=== PATIENT | male | born 1990 | race Caucasian/White ===

== ENCOUNTER 2016-06-06 13:13 | Emergency (ER) | payer OTHER ==
[2016-06-06 13:37] LABS: BASOPHILS 0.6 % (0.0-2.0); EOSINOPHILS 1.3 % (0.0-6.0); EOSINOPHILS# 0.1 X 10^3uL (0.0-0.4); HEMATOCRIT 41.2 % (42.0-54.0); HEMOGLOBIN 14.6 g/dL (14.0-18.0); LYMPHOCYTES 28.8 % (20.0-40.0); LYMPHOCYTES# 1.5 X 10^3uL (0.8-3.8); MEAN CELL VOLUME 99.4 fL (80.0-100.0); MEAN CORPUS. HGB CONCENTRATION 35.3 g/dL (32.0-36.0); MEAN CORPUSCULAR HEMOGLOBIN 35.1 pg (29.0-35.0); MONOCYTES 7.7 % (2.0-10.0); MONOCYTES# 0.4 X 10^3uL (0.2-1.0); NEUTROPHILS 61.6 % (54.0-75.0); NEUTROPHILS# 3.3 X 10^3uL (2.6-6.7); PLATELET COUNT 123 X 10^3uL (130-440); RED BLOOD COUNT 4.15 X 10^6uL (4.20-6.10); RED CELL DISTRIBUTION WIDTH 12.4 % (11.5-14.5); WHITE BLOOD COUNT 5.4 X 10^3uL (3.9-10.7)
[2016-06-06 13:46] LABS: BLOOD UREA NITROGEN 12 mg/dL (9-20); CALCIUM 10.1 mg/dL (8.4-10.2); CHLORIDE 98 mmol/L (98-107); CREATININE 0.9 mg/dL (0.7-1.3); EST GLOMERULAR FILTRATION RATE > 60 mL/min; GLUCOSE 106 mg/dL (70-100); MAGNESIUM 1.4 mg/dL (1.6-2.3); POTASSIUM 3.1 mmol/L (3.5-5.1); SODIUM 139 mmol/L (137-145)
[2016-06-06 13:47] LABS: ETHYL ALCOHOL < 10 mg/dL (<10)
[2016-06-06] MEDS ORDERED: MAGNESIUM SULFATE 1 GM/2 ML VIAL ONE (13:47)
[2016-06-06] MEDS ORDERED: NORMAL SALINE 1,000 ML IV ONE (13:48)
[2016-06-06] MEDS ORDERED: THIAMINE HCL 200 MG/2 ML VIAL ONE (13:48)
[2016-06-06] MEDS ORDERED: CHLORDIAZEPOXIDE 25 MG CAPSULE PO ONE ×3 (13:48→14:55)
[2016-06-06] MEDS ORDERED: MULTIVITAMINS 10 ML VIAL IV ONE (13:49)
[2016-06-06] MEDS ORDERED: POTASSIUM EFF 25 MEQ TABLET ONE (14:11)
[2016-06-06] MEDS ORDERED: BACITRACIN 1 APP/PKT PKT TOPICAL ONE (14:11)
--- NOTE | 2016-06-06 16:03 | ER NURSING DOCUMENTATION ---
Nurse's Notes [facility] [place] Name:Jeffrey Lombardi Age:26 yrs Sex:Male :1990 Arrival Date:06/06/2016 Time:13:13 BedTrauma-B Private MD: Diagnosis:Seizure Presentation: 06/06 13:18 Acuity: ISAIAH 3 nf 13:20 Presenting complaint: Patient states: at [facility] x4 days, usually drinks 1 liter vodka nf daily, sober x4 days, history of ETOH withdrawal seizures; today on 1 mile hike with [employer] and had 2 witnessed seizures of "short" duration and were "not tonic clonic" per [facility] staff. Transition of care: patient was not received from another setting of care. Notified ED Physician of patient's arrival and CC Dr. Quinones notified. Care prior to arrival: IV initiated. gauge and site 18# right AC Saline lock initiated. Glucose check. 152 Oxygen administered. 13:20 Method Of Arrival: EMS: 410 nf Triage Assessment: 13:20 EENT: No deficits noted. Neuro: Level of Consciousness is awake, alert, Oriented to nf person, place, time, event, Moves all extremities. Speech is normal, Facial symmetry appears normal, Pupils are PERRLA, Denies weakness blurred vision dizziness, paresthesias headache Seizure activity reported prior to arrival. Neuro:. Cardiovascular: Capillary refill < 3 seconds Rhythm is regular. Respiratory: Respiratory effort is even, unlabored, Respiratory pattern is regular. GI: No deficits noted. Denies nausea, vomiting. 13:25 General: Appears in no apparent distress, well nourished, well groomed, Behavior is nf anxious, crying. Pain: Denies pain. Historical: - Allergies: No known drug Allergies; - Home Meds: 1. gabapentin oral 2. Carbamazepine Oral - PMHx: alcohol withdrawl seizures; previous alcohol detox; - PSHx: NA ; - Tetanus: Other NA today < 10 years. - Ebola Screening: : No symptoms or risks identified at this time. . - Immunization history: Flu Vaccine unknown. - Social history: Smoking status: Patient uses tobacco products, current every day smoker. Patient uses alcohol street drugs, marijuana. Screenin:29 Infectious Disease Risk None. Abuse screen: Denies threats or abuse. Nutritional nf screening: No deficits noted. Assessment: 13:29 See Triage Assessment done by same RN. nf Vital Signs: 13:20 BP 140 / 104; Pulse 124; Resp 18; Temp 98.0(O); Pulse Ox 96% on R/A; Weight 69.85 kg; nf Height 6 ft. 0 in. (182.88 cm); Pain 0/10; 13:50 BP 158 / 120; Pulse 127; Pulse Ox 94% on R/A; nf 14:20 BP 171 / 119; Pulse 111; Resp 16; Pulse Ox 96% on R/A; Pain 0/10; nf 15:49 BP 114 / 88; Pulse 95; Resp 16; Pulse Ox 93% on R/A; Pain 0/10; nf 13:20 Body Mass Index 20.89 (69.85 kg, 182.88 cm) nf [place] Coma Score: 13:20 Eye Response: spontaneous(4). Verbal Response: oriented(5). Motor Response: obeys nf commands(6). Total: 15. 13:50 Eye Response: spontaneous(4). Verbal Response: oriented(5). Motor Response: obeys nf commands(6). Total: 15. 14:20 Eye Response: spontaneous(4). Verbal Response: oriented(5). Motor Response: obeys nf commands(6). Total: 15. 15:49 Eye Response: spontaneous(4). Verbal Response: oriented(5). Motor Response: obeys nf commands(6). Total: 15. 15:49 Eye Response: spontaneous(4). Verbal Response: oriented(5). Motor Response: obeys nf commands(6). Total: 15. ED Course: 13:14 Patient arrived in ED. arc 13:15 Clau Hooks, RN is Primary Nurse. nf 13:20 Triage completed. nf 13:20 Maintain field IV. Dressing intact. Site clean & dry. nf 13:29 Valuables Remains with patient Patient has correct armband on for positive nf identification. Bed in low position. Call light in reach. Side rails up X2. Seizure precautions initiated. Seizure pads on bed close monitoring by staff. Pulse ox on. NIBP On - RN Monitoring Only. Door closed. Noise minimized. Lights dimmed. Moved to private room. Verbal reassurance given. Warm blanket given. Pillow given. Diet: Patient is NPO. 13:29 Arm band placed on Bed in low position Call Light in Reach HOB Elevated Side rails up nf x2. 13:33 Guy Quinones MD is Attending Physician. sc 14:05 Resting quietly. nf 14:05 Wound care located on left lateral hand dime size wound x3 weeks that patient requested nf ointment and bandaid to dress. 14:50 Diet: Patient given water. meal tray requested from dietary. nf 15:20 Diet: Patient given regular meal. Assisted to bathroom. nf Administered Medications: 13:56 Drug: Banana Bag - (NS 0.9% 1000 ml, folic acid 600 mcg, Thiamine 100 mg, Multivitamin nf 10 ml, Magnesium Sulfate 1 grams); Route: IV; Rate: calculated rate; Site: right antecubital; 14:50 Follow up: IV Status: Completed infusion; IV Intake: 1000ml nf 13:56 Drug: librium - chlordiazePOXIDE 25 mg; Route: PO; nf 14:32 Follow up: Response: No adverse reaction nf 14:03 Drug: K-Lyte Effervescent Tablet 50 mEq; Route: PO; nf 14:31 Follow up: Response: No adverse reaction nf 14:04 Drug: librium - chlordiazePOXIDE 25 mg; Route: PO; nf 14:32 Follow up: Response: No adverse reaction nf 14:04 Drug: Bacitracin Ointment (500 unit/g) 1 application; Route: Topical; Site: wound; nf 14:31 Follow up: Response: No adverse reaction nf 14:49 Drug: librium - chlordiazePOXIDE 25 mg; Route: PO; nf 15:22 Follow up: Response: No adverse reaction nf Intake: 14:50 IV: 1000ml; Total: 1000ml. nf 15:58 PO: 640ml (Water); Total: 1640ml. nf Output: 15:58 Urine: 1ml (Voided); Total: 1ml. nf Outcome: 14:21 Report given to nurse Jesika at [facility] - she states the patient will go back to [facility] for the night and be started on keppra for 1 week; Jesika was given a report on the patient's condition and lab results and medications administered 15:50 Report given to nurse Canchola at [facility], she is arranging for patient transport back to [facility]; ER sending copy of lab work and medications administered with patient 16:00 Discharge ordered by MD. sc 16:03 Patient left the ED. nf 16:04 Discharged to discharged to waiting room to await transport by [facility] staff nf 16:04 Condition: improved 16:04 Discharge Assessment: Patient awake, alert and oriented x 3. No cognitive and/or functional deficits noted. Patient verbalized understanding of disposition instructions. 16:04 Discharge instructions given to patient, [facility] staff 16:04 Instructed on discharge instructions, follow up and referral plans. medication usage. 16:04 IV D/Alvin Signatures: Clau Hooks RN RN nf Chew, Scott, MD MD sc Chew, Abbie, Reg Reg arc
--- NOTE | 2016-06-06 16:03 | ER PHYSICIAN DOCUMENTATION ---
Physician Documentation [facility] Name:Jeffrey Lombardi Age:26 yrs Sex:Male :1990 Arrival Date:06/06/2016 Time:13:13 BedTrauma-B Private MD: Guy Viramontes Disposition: 06/06/16 16:00 Discharged to [facility]. Impression: Seizure. - Condition is Good. - Discharge Instructions: Abuse, Alcohol - ALCOHOL WITHDRAWAL SEIZURE, Abuse, Alcohol - ALCOHOL WITHDRAWAL. - Medical Reconciliation form form. - Follow up: Private Physician; When: Today; Reason: Continuance of care. - Problem is new. - Symptoms have improved. HPI: 06/06 13:48 This 26 yrs old Male presents to ER via EMS with complaints of Probable sc Seizure. 13:48 The patient presents with a history of multiple seizures, a total of 2, that last 2 sc minute(s). Character of seizure(s): Loss of consciousness: the patient experienced loss of consciousness, Motor activity: generalized, Incontinence: none, Apnea: the patient did not experience apnea, Circulation: the patient did not experience evidence of pulse disturbance. Seizure onset: just prior to arrival. Context: the seizure(s) was witnessed, Rehab staff. Seizure Hx: Cause: alcohol abuse history, Last seizure: The patient's last seizure was approximately 8 month(s) ago. Associated injury: The patient did not suffer any apparent associated injury. EMS care: IV fluids. Current symptoms: Currently, the patient is not experiencing any symptoms. The patient has experienced similar episodes in the past, a few times. 13:50 wd szs in past always on day 4 of sobriety. sc Historical: - Allergies: No known drug Allergies; - Home Meds: 1. gabapentin oral 2. Carbamazepine Oral - PMHx: alcohol withdrawl seizures; previous alcohol detox; - PSHx: NA ; - Tetanus: Other NA today < 10 years. - Ebola Screening: : No symptoms or risks identified at this time. . - Immunization history: Flu Vaccine unknown. - Social history: Smoking status: Patient uses tobacco products, current every day smoker. Patient uses alcohol street drugs, marijuana. ROS: 13:50 Constitutional: Negative for fever, chills, and weight loss. sc Eyes: Negative for injury, pain, redness, and discharge. ENT: Negative for injury, pain, and discharge. Neck: Negative for injury, pain, and swelling. Cardiovascular: Negative for chest pain, palpitations, and edema. Respiratory: Negative for shortness of breath, cough, wheezing, and pleuritic chest pain. Abdomen/GI: Negative for abdominal pain, nausea, vomiting, diarrhea, and constipation. Back: Negative for injury and pain. MS/Extremity: Negative for injury and deformity. 13:50 Skin: Negative for injury, rash, and discoloration. sc 13:50 Neuro: Positive for tremor. 13:50 Psych: Positive for anxiety, alcohol dependence. Exam: Constitutional: This is a well developed, well nourished patient who is awake, alert, and in no acute distress. Head/Face: Normocephalic, atraumatic. Eyes: Pupils equal round and reactive to light, extra-ocular motions intact. Lids and lashes normal. Conjunctiva and sclera are non-icteric and not injected. Cornea within normal limits. Periorbital areas with no swelling, redness, or edema. ENT: Nares patent. No nasal discharge, no septal abnormalities noted. Tympanic membranes are normal and external auditory canals are clear. Oropharynx with no redness, swelling, or masses, exudates, or evidence of obstruction, uvula midline. Mucous membranes moist. Neck: Trachea midline, no thyromegaly or masses palpated, and no cervical lymphadenopathy. Supple, full range of motion without nuchal rigidity, or vertebral point tenderness. No meningismus. Chest/axilla: Normal chest wall appearance and motion. Nontender with no deformity. No lesions are appreciated. Cardiovascular: Regular rate and rhythm with a normal S1 and S2. No gallops, murmurs, or rubs. Normal PMI, no JVD. No pulse deficits. Respiratory: Lungs have equal breath sounds bilaterally, clear to auscultation and percussion. No rales, rhonchi or wheezes noted. No increased work of breathing, no retractions or nasal flaring. Abdomen/GI: Soft, non-tender, with normal bowel sounds. No distension or tympany. No guarding or rebound. No evidence of tenderness throughout. Back: No spinal tenderness. No costovertebral tenderness. Full range of motion. 13:51 Skin: Warm, dry with normal turgor. Normal color with no rashes, no lesions, and no sc evidence of cellulitis. 13:51 Neuro: Motor: tremulous. Vital Signs: 13:20 BP 140 / 104; Pulse 124; Resp 18; Temp 98.0(O); Pulse Ox 96% on R/A; Weight 69.85 kg; nf Height 6 ft. 0 in. (182.88 cm); Pain 0/10; 13:50 BP 158 / 120; Pulse 127; Pulse Ox 94% on R/A; nf 14:20 BP 171 / 119; Pulse 111; Resp 16; Pulse Ox 96% on R/A; Pain 0/10; nf 15:49 BP 114 / 88; Pulse 95; Resp 16; Pulse Ox 93% on R/A; Pain 0/10; nf 13:20 Body Mass Index 20.89 (69.85 kg, 182.88 cm) nf [place] Coma Score: 13:20 Eye Response: spontaneous(4). Verbal Response: oriented(5). Motor Response: obeys nf commands(6). Total: 15. 13:50 Eye Response: spontaneous(4). Verbal Response: oriented(5). Motor Response: obeys nf commands(6). Total: 15. 14:20 Eye Response: spontaneous(4). Verbal Response: oriented(5). Motor Response: obeys nf commands(6). Total: 15. 15:49 Eye Response: spontaneous(4). Verbal Response: oriented(5). Motor Response: obeys nf commands(6). Total: 15. 15:49 Eye Response: spontaneous(4). Verbal Response: oriented(5). Motor Response: obeys nf commands(6). Total: 15. MDM: 13:39 Patient medically screened. sc 13:51 Differential diagnosis: seizure. Neurological re-evaluation: normal neurological exam sc including cranial nerves, orientation, mentation, motor and sensory exam, cerebellar testing, GCS normal, and normal gait. Data reviewed: vital signs, nurses notes, old medical records, lab test result(s), and as a result, I will continue to observe the patient. Counseling: I had a detailed discussion with the patient and/or guardian regarding: the historical points, exam findings, and any diagnostic results supporting the discharge/admit diagnosis, lab results, the need for outpatient follow up. Medication response: The patient's symptoms have improved. 06/06 13:38 Order name: CBC AUTO DIF, MDIF/RMOR IF IND; Complete Time: 13:52 EDMS 06/06 13:52 Interpretation: Normal: Normal. va 06/06 13:48 Order name: BASIC METABOLIC PANEL; Complete Time: 13:52 EDMS 06/06 13:52 Interpretation: Normal Except: POTASSIUM 3.1. va 06/06 13:48 Order name: MAGNESIUM; Complete Time: 13:52 EDMS 06/06 13:52 Interpretation: Normal Except: MAGNESIUM 1.4. va 06/06 13:48 Order name: ETHYL ALCOHOL; Complete Time: 13:52 EDMS 06/06 13:52 Interpretation: Normal. va 06/06 13:26 Order name: I & O; Complete Time: 18:26 nf 06/06 13:26 Order name: NPO; Complete Time: 13:27 nf 06/06 13:26 Order name: Pulse Ox Continuous; Complete Time: 13:27 nf Dispensed Medications: 13:56 Drug: Banana Bag - (NS 0.9% 1000 ml, folic acid 600 mcg, Thiamine 100 mg, Multivitamin nf 10 ml, Magnesium Sulfate 1 grams); Route: IV; Rate: calculated rate; Site: right antecubital; 14:50 Follow up: IV Status: Completed infusion; IV Intake: 1000ml nf 13:56 Drug: librium - chlordiazePOXIDE 25 mg; Route: PO; nf 14:32 Follow up: Response: No adverse reaction nf 14:03 Drug: K-Lyte Effervescent Tablet 50 mEq; Route: PO; nf 14:31 Follow up: Response: No adverse reaction nf 14:04 Drug: librium - chlordiazePOXIDE 25 mg; Route: PO; nf 14:32 Follow up: Response: No adverse reaction nf 14:04 Drug: Bacitracin Ointment (500 unit/g) 1 application; Route: Topical; Site: wound; nf 14:31 Follow up: Response: No adverse reaction nf 14:49 Drug: librium - chlordiazePOXIDE 25 mg; Route: PO; nf 15:22 Follow up: Response: No adverse reaction nf Signatures: Clau Hooks RN RN nf Chew, Scott, MD MD va
== END 2016-06-06 16:03 ==
LOC: ER 13:13 → EEVIPCON 13:13 → ER 16:03
DX: R56.9 Unspecified convulsions (principal); F10.239 Alcohol dependence with withdrawal, unspecified; R25.1 Tremor, unspecified; F41.9 Anxiety disorder, unspecified; F17.210 Nicotine dependence, cigarettes, uncomplicated; Z79.899 Other long term (current) drug therapy; Z74.3 Need for continuous supervision
CPT/HCPCS: 80048; 80320; 83735; 85025; 96365; 99284; A0425; A0429; J3475; J7030